=== PATIENT | female | born 1985 | race Caucasian/White ===

== ENCOUNTER 2017-01-18 12:20 | Emergency (ER) | payer OTHER ==
[~2017-01-18] VITALS: Ht 172.7 cm; Wt 73.0 kg
[~2017-01-18 12:20] MED LIST: IBUP-81
[2017-01-18 12:26] VITALS: BP 142/89
--- NOTE | 2017-01-18 12:39 | NUR ---
Patient ambulated to bed 07.
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
--- NOTE | 2017-01-18 12:44 | NUR ---
L&D NURSE AT BEDSIDE TO GET HEART TONES.
--- NOTE | 2017-01-18 12:45 | NUR ---
Dr. Goss evaluating patient at bedside.
[2017-01-18 12:56] LABS: BILIRUBIN,URINE NEGATIVE (NEGATIVE); BLOOD, URINE NEGATIVE (NEGATIVE); COLOR,URINE YELLOW (YELLOW); NITRITE, URINE NEGATIVE (NEGATIVE); PROTEIN,URINE NEGATIVE (NEGATIVE); UGLUCOSE NEGATIVE (NEGATIVE); UROBILINOGEN,URINE 0.2 EU/dL (0.2 - 1)
[2017-01-18 12:57] LABS: BASOPHILS # (AUTO) 0.1 K/uL (0.00-0.22); BASOPHILS % (AUTO) 0.6 % (0.0-2.0); EOSINOPHILS # (AUTO) 0.2 K/uL (0-0.4); EOSINOPHILS % (AUTO) 1.5 % (0.0-4.0); HEMATOCRIT 34.9 % (36-48); HEMOGLOBIN 11.6 g/dL (12.0-16.0); LYMPHOCYTES # (AUTO) 1.6 K/uL (2.5-16.5); LYMPHOCYTES % (AUTO) 13.9 % (20.5-51.1); MEAN CORPUSCULAR HEMOGLOBIN 29 pg (27-31); MEAN CORPUSCULAR HGB CONC 33 g/dL (33-37); MEAN CORPUSCULAR VOLUME 86 fL (80-94); MONOCYTES # (AUTO) 0.5 K/uL (0.8-1.0); MONOCYTES % (AUTO) 4.9 % (1.7-9.3); NEUTROPHILS # (AUTO) 8.8 K/uL (1.8-7.7); NEUTROPHILS % (AUTO) 79.1 % (42.2-75.2); PLATELET COUNT (AUTO) 264 K/uL (140-450); RED BLOOD CELL COUNT(AUTO) 4.05 MIL/uL (4.20-5.40); RED CELL DISTRIBUTION WIDTH 12.9 % (11.6-13.7); WHITE BLOOD COUNT (AUTO) 11.2 K/uL (4.8-10.8)
[2017-01-18 13:05] LABS: ANION GAP 14.2 (8-16); CALCIUM 9.9 mg/dL (8.5-10.1); CARBON DIOXIDE 24.4 mmol/L (21-32); CREATININE 0.5 mg/dL (0.6-1.3); POTASSIUM 3.6 mmol/L (3.5-5.1)
[2017-01-18 13:06] LABS: LEUKOCYTE ESTERASE ,URINE 1+ (NEGATIVE)
[2017-01-18 13:07] LABS: BACTERIA,URINE OCCASSIONAL /HPF (None Seen); RBC,URINE NONE SEEN /HPF (0-5); SQUAMOUS EPITHELIAL CELL,UR 0-3 (FEW) /LPF (0-3 (FEW)); WBC,URINE 0-3 /HPF (0-5)
[2017-01-18 13:08] LABS: FATTY CASTS,URINE 0-10 /LPF (None Seen)
[2017-01-18 13:11] LABS: TOTAL BILIRUBIN 0.2 mg/dL (0.0-1.0)
[2017-01-18 13:30] VITALS: BP 124/84
== END 2017-01-18 13:30 | disposition home or self-care (01) ==
LOC: MED 12:20
DX: O9A.213 Injury, poisoning and certain other consequences of external causes complicating pregnancy, third trimester (principal); S16.1XXA Strain of muscle, fascia and tendon at neck level, initial encounter; Z3A.28 28 weeks gestation of pregnancy; V89.2XXA Person injured in unspecified motor-vehicle accident, traffic, initial encounter; Y93.89 Activity, other specified; Y92.89 Other specified places as the place of occurrence of the external cause; Y99.8 Other external cause status
CPT/HCPCS: 36415; 80053; 81001; 81025; 85025; 87086; 99284

== ENCOUNTER 2022-01-17 09:03 | Emergency (ER) | payer OTHER ==
[~2022-01-17] VITALS: Ht 170.2 cm; Wt 77.7 kg
[2022-01-17 09:16] VITALS: BP 162/121
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
--- NOTE | 2022-01-17 09:34 | NUR ---
DR WEBBER AT BEDSIDE FOR EVAL
--- NOTE | 2022-01-17 09:49 | NUR ---
RECHECKED BP, 153/91. PT STATES THAT THEIR THYROID DISORDER ALSO CAUSES THEIR BLOOD PRESSURE TO GO UP, STATES THAT THEY DIDNT TAKE THEIR MEDICATION TODAY
--- NOTE | 2022-01-17 09:59 | NUR ---
RAD AT BEDSIDE
[2022-01-17] MEDS ORDERED: DIAZ5TAB6 PO (10:19)
[2022-01-17] MEDS ORDERED: NAPR-54 PO (10:19)
--- NOTE | 2022-01-17 10:43 | NUR ---
Patient discharged with v/s stable. Written and verbal after care instructions given and explained. Patient alert, oriented and verbalized understanding of instructions. Ambulatory with steady gait. All questions addressed prior to discharge. ID band removed. Patient advised to follow up with PMD. Rx of NAPROXEN AND VALIUM given. Patient educated on indication of medication including possible reaction and side effects. Opportunity to ask questions provided and answered.
== END 2022-01-17 10:43 | disposition home or self-care (01) ==
LOC: MED 09:03
DX: S53.401A Unspecified sprain of right elbow, initial encounter (principal); M79.631 Pain in right forearm; E03.9 Hypothyroidism, unspecified; Z90.49 Acquired absence of other specified parts of digestive tract; V89.2XXA Person injured in unspecified motor-vehicle accident, traffic, initial encounter; Z98.890 Other specified postprocedural states; Y93.89 Activity, other specified; Y92.410 Unspecified street and highway as the place of occurrence of the external cause; Y99.8 Other external cause status
CPT/HCPCS: 73090; 99283